=== PATIENT | female | born 1935 | race Caucasian/White ===

== ENCOUNTER → 2018-05-22 09:33 | Outpatient (CLI) | payer MEDICARE, SELFPAY | PROVIDERS: PCP Family Medicine; Visit Provider Family Medicine | DX: M85.851 Other specified disorders of bone density and structure, right thigh (principal); Z78.0 Asymptomatic menopausal state; E07.9 Disorder of thyroid, unspecified; Z90.722 Acquired absence of ovaries, bilateral; Z87.891 Personal history of nicotine dependence | CPT/HCPCS: 77080 ==

== ENCOUNTER → 2020-09-17 10:19 | Outpatient (CLI) | payer MEDICARE, SELFPAY ==
--- NOTE | 2020-09-17 | DI.ECHO.S_ITS ---
[place] [facility] +---------+ : : [address] : : : : [id number] : : : : Phone: [phone]+ Echocardiogram Report + + :Name: BALTAZAR GILL Study Date: 09/17/2020 Height: 66 in : :[facility] ReadingLocation: Weight: 189 lb : : Gender: Female BSA: 2.0 m2 : :: 1935 Age: 85 yrs BP: 185/98 mmHg: :Reason For Study: Edema : :Ordering Physician: ANDRÉS, : :DUSTIN Ford Performed By: Jeff Goode : :Referring: DUSTIN BOWEN : + + Interpretation Summary The ejection fraction is estimated to be 55-60%. The aortic valve is mildly calcified. The aortic valve mean gradient is 11 mmHg. There is mild mitral regurgitation. Procedure: A two-dimensional transthoracic echocardiogram with color flow and Doppler was performed. The study quality was technically adequate. There is no prior echocardiogram noted for this patient. Left Ventricle: Left ventricular wall thickness is borderline increased. Left ventricular systolic function is normal. The ejection fraction is estimated to be 55-60%. There are no focal wall motion abnormalities. Diastolic function could not be accurately assessed due to unobtainable data. Right Ventricle: The right ventricle is normal in size and function. Atria: Both atria are normal in size. There is no Doppler evidence for an interatrial shunt. Mitral Valve: There is mild mitral annular calcification. There is mild mitral regurgitation. Aortic Valve: The aortic valve is mildly calcified. There is mild aortic stenosis. The aortic valve mean gradient is 11 mmHg. There is trace aortic regurgitation. Tricuspid Valve: The tricuspid valve is normal in structure and function. There is a trace or physiologic amount of tricuspid regurgitation. Pulmonary artery pressures cannot be estimated because of the lack of a measurable TR jet velocity but the IVC suggests a CVP of around 3 mmHg. Pulmonic Valve: The pulmonic valve is not well seen, but is grossly normal. There is a trace or physiologic amount of pulmonic regurgitation. Great Vessels: The aortic root is normal size. The dimensions of the ascending aorta are normal. The IVC is of normal diameter and collapses greater than 50% with a sniff. This suggests a low right atrial pressure of 3 mm Hg. Pericardium/ Pleura There is no pericardial effusion. There is no pleural effusion. MMode/2D Measurements & Calculations LVIDd: 4.2 cm LVOT diam: 1.9 cm LVIDs: 2.8 cm Ao root diam: 3.1 cm FS: 33.0 % asc Aorta Diam: 3.4 cm IVSd: 1.1 cm LVPWd: 0.95 cm LV melendez. diameter/BSA (cm/m^2): 2.1 LV sys. diameter/BSA (cm/m^2): 1.4 LA A2 area: 12.9 cm2 RA long axis: 4.5 cm LA A4 area: 14.1 cm2 RA area: 12.8 cm2 LA length (vol): 4.4 cm RA vol: 31.1 ml LA vol: 35.4 ml RA : 15.9 ml/m2 LA vol index: 18.1 ml/m2 IVC diam: 1.4 cm RVD1 (basal): 2.9 cm TAPSE: 1.8 cm Doppler Measurements & Calculations Ao V2 max: 217.0 cm/sec LVOT Max Maciel: 115.9 cm/sec Ao V2 mean: 153.4 cm/sec LV V1 max P.4 mmHg Ao max P.8 mmHg LV V1 VTI: 24.7 cm Ao mean P.7 mmHg KITTY(I,D): 1.6 cm2 Ao V2 VTI: 43.9 cm KITTY(V,D): 1.5 cm2 sev ratio: 0.56 KITTY indexed to BSA (cm^2/m^2): 0.80 MV E max maciel: 89.2 cm/sec PA V2 max: 114.3 cm/sec MV A max maciel: 126.8 cm/sec PA V2 mean: 87.1 cm/sec MV E/A: 0.70 PA mean P.3 mmHg Med Peak E' Maciel: 5.0 cm/sec PA pr(Accel): 48.9 mmHg E/E' med: 17.7 Lat Peak E' Maciel: 7.6 cm/sec E/E' lat: 11.8 E/e' average: 14.7 MV dec time: 0.24 sec SV(LVOT): 68.9 ml Reading Physician:04:10 PM
== END ==
PROVIDERS: PCP Family Medicine; Referring Provider Family Medicine; Visit Provider Family Medicine
DX: I08.0 Rheumatic disorders of both mitral and aortic valves (principal); R60.9 Edema, unspecified
CPT/HCPCS: 93306

== ENCOUNTER 2020-10-22 12:33 | Emergency (ER) | payer MEDICARE, SELFPAY ==
[2020-10-22] VITALS (11 sets, daily range): BP systolic 151–183; BP diastolic 72–77; PULSE 81–99; RESP 15; TEMP 37.1; O2SAT 95–98; BMI 30.4
[2020-10-22 12:57] LABS: Add Manual Diff / Slide Review NO; Basophils Absolute Auto 100 /uL (0-100); Basophils Percent Auto 0.7 % (0-2); Eosinophils Absolute Auto 0 /uL (0-450); Eosinophils Percent Auto 0.1 % (2-4); Hematocrit 39.7 % (36-46); Hemoglobin 13.5 g/dL (12.0-16.0); Lymphocytes Absolute Auto 2300 /uL (1100-4500); Lymphocytes Percent Auto 22.2 % (25-40); Mean Corpuscular Hemoglobin 30.5 PG (26-34); Mean Corpuscular Volume 89.7 fL (80-100); Monocytes Absolute Auto 400 /uL (0-900); Monocytes Percent Auto 4.1 % (3-14); Neutrophils Absolute Auto 7600 /uL (1500-7000); Neutrophils Percent Auto 72.9 % (50-75); Platelet Count 268 X10^3/uL (150-400); Red Blood Cell Count 4.42 X10^6/uL (4.0-5.2); Red Cell Distribution Width 12.5 % (11.6-14.8); White Blood Cell Count 10.5 X10^3/uL (4.5-11.0)
[2020-10-22 13:04] LABS: Alanine Aminotransferase 24 IU/L (<35); Albumin 4.5 g/dL (3.5-5.0); Albumin Globulin Ratio 1.3 (1.0-2.8); Alkaline Phosphatase 86 U/L (38-126); Aspartate Aminotransferase 28 IU/L (14-36); BUN Creatinine Ratio 20.5 (6-22); Bilirubin Total 0.7 mg/dL (0.2-1.3); Blood Urea Nitrogen 24 mg/dL (7-17); Calcium 10.4 mg/dL (8.4-10.2); Carbon Dioxide 27 mmol/L (22-32); Chloride 102 mmol/L (98-107); Ethanol (ETOH) < 10 mg/dL; Globulin 3.5 g/dL (1.7-4.1); Glucose 170 mg/dL (80-110); HEMOLYSIS < 15 (0-50); Potassium 3.3 mmol/L (3.4-5.1); Sodium 139 mmol/L (137-145)
--- NOTE | 2020-10-22 13:16 | ED_ITS ---
HPI - General Adult General Chief complaint: Urogenital-Female Stated complaint: terrible pain in back spreading to abdomen Time Seen by Provider: 10/22/20 12:52 Source: patient Mode of arrival: Ambulatory Limitations: no limitations History of Present Illness HPI narrative: 85-year-old female who is here for evaluation of approximately 24 hours of right-sided flank/abdominal/back discomfort. She also states she has been having urinary frequency. No dysuria. No change in bowel habits. Did have some nausea this morning but that was just 1 time that has since improved. No skin rashes over the area. Has not tried anything for the symptoms prior to arrival. She does have an extensive bowel history. Has had a colectomy. Has had a appendectomy, hysterectomy. She is afebrile. No chest pain. No shortne ss of breath. No fevers. Related Data Home Medications Medication Instructions Recorded Confirmed levothyroxine 100 mcg capsule 100 mcg PO DAILY 10/24/19 10/24/19 metformin 500 mg tablet 500 mg PO DAILY 10/24/19 10/24/19 simvastatin 10 mg tablet 20 mg PO DAILY tab 10/24/19 10/24/19 triamterene 75 1 tab PO DAILY 10/24/19 10/24/19 mg-hydrochlorothiazide 50 mg tablet Previous Rx's Medication Instructions Recorded cephalexin 500 mg capsule 500 mg PO BID 3 Days #6 cap 10/22/20 hydrocodone 5 mg-acetaminophen 325 1 tab PO Q8H PRN #3 tab 10/22/20 mg tablet Allergies Allergy/AdvReac Type Severity Reaction Status Date / Time No Known Drug Allergies Allergy Verified 10/22/20 12:44 Review of Systems Constitutional Constitutional: Denies fever(s) Eyes Eyes: Reports system reviewed and no additional complaints, except as documented ENT Ears, Nose, Mouth, and Throat: Denies sore throat Cardiovascular Cardiovascular: Reports system reviewed and no additional complaints, except as documented Respiratory Respiratory: Reports system reviewed and no additional complaints, except as documented Gastrointestinal Gastrointestinal: Reports as per HPI Genitourinary Genitourinary: Reports as per HPI Musculoskeletal Musculoskeletal: Reports system reviewed and no additional complaints, except as documented Integumentary/Breasts Skin/Breast: Denies rash Neurologic Neurologic: Reports system reviewed and no additional complaints, except as documented Endocrine Endocrine: Reports system reviewed and no additional complaints, except as documented Hematologic/Lymphatic On Anticoagulants: No Allergic/Immunologic Allergic/Immunologic: Reports system reviewed and no additional complaints, except as documented Patient History Medical History Hypertension Social History Smoking Status: Unknown if ever smoked Smoking Status: Unknown if ever smoked alcohol intake frequency: holidays/special occasions only Substance Use Type: does not use Exam Initial Vital Signs Initial Vital Signs: Vital Signs Temperature 98.8 F 10/22/20 12:40 Pulse Rate 95 H 10/22/20 12:40 Respiratory Rate 15 10/22/20 12:40 Blood Pressure 169/77 H 10/22/20 12:40 Pulse Oximetry 96 10/22/20 12:40 Const General: cooperative HENMT Head: normal to inspection and normocephalic Eyes General: appearance normal, both eyes and all related structures Resp Effort & Inspection: normal respiratory effort Auscultation: clear to auscultation bilaterally Cardio Rate: regular rate Rhythm: regular rhythm GI Inspection: normal to inspection Palpation: soft and tender (Right lower quadrant/right flank) Back/Spine/Pelvis Back: CVA tenderness right Skin General: no rashes or lesions noted Neuro General: patient alert, patient awake, patient oriented x3 and moves all extremities Extrem General: normal to inspection Psych Appearance: grossly normal and well kempt Course Orders Ordered: ED Orders 10/22/20 12:46 Complete Blood Count AUTO DIFF Stat Comprehensive Metabolic Panel Stat Ethanol (ETOH) Stat 10/22/20 13:15 Urinalysis and Microscopic Stat Urine Culture Stat 10/22/20 13:16 CT abdomen pelvis w con Stat Discontinued Medications Hydrocodone Bitart/Acetaminophen (Hydrocodone/Acet 5/325 Tablet) 1 tab PO NOW ONE Stop: 10/22/20 14:01 Last Admin: 10/22/20 14:08 Dose: 1 tab Documented by: THALIA Sodium Chloride (Normal Saline 0.9%) 1,000 mls @ 1,000 mls/hr IV BOLUS ONE Stop: 10/22/20 14:15 Last Infusion: 10/22/20 15:09 Dose: 0 mls/hr Documented by: Admin: 10/22/20 13:22 Dose: 1,000 mls/hr Documented by: THALIA Vital Signs Vital signs: Vital Signs - 8 hr 10/22/20 12:40 10/22/20 12:41 10/22/20 13:00 Temperature 98.8 F Pulse Rate 99 H 98 H 92 H Respiratory Rate 15 Blood Pressure 169/77 H 169/77 H Pulse Oximetry 97 96 95 10/22/20 13:01 10/22/20 13:30 10/22/20 14:00 Temperature Pulse Rate 92 H 87 82 Respiratory Rate Blood Pressure 183/74 H Pulse Oximetry 97 98 97 10/22/20 14:11 10/22/20 14:30 10/22/20 14:31 Temperature Pulse Rate 84 82 81 Respiratory Rate Blood Pressure 175/76 H 179/75 H Pulse Oximetry 97 97 97 10/22/20 15:00 10/22/20 15:01 Temperature Pulse Rate 84 87 Respiratory Rate Blood Pressure 151/72 H Pulse Oximetry 97 97 Medical Decision Making Lab Data Lab results reviewed: Yes I reviewed the patient's lab results. Result diagrams: 10/22/20 12:46 10/22/20 12:46 Labs: Lab Results 10/22/20 10/22/20 10/22/20 Range/Units 12:46 12:46 12:46 WBC 10.5 (4.5-11.0) X10^3/uL RBC 4.42 (4.0-5.2) X10^6/uL Hgb 13.5 (12.0-16.0) g/dL Hct 39.7 (36-46) % MCV 89.7 (80-100) fL MCH 30.5 (26-34) PG MCHC 34.0 (30-36) % RDW 12.5 (11.6-14.8) % Plt Count 268 (150-400) X10^3/uL Neut % (Auto) 72.9 (50-75) % Lymph % (Auto) 22.2 L (25-40) % [place] % (Auto) 4.1 (3-14) % Eos % (Auto) 0.1 L (2-4) % Baso % (Auto) 0.7 (0-2) % Neut # (Auto) 7600 H (5258-0707) /uL Lymph # (Auto) 2300 (0648-0149) /uL [place] # (Auto) 400 (0-900) /uL Eos # (Auto) 0 (0-450) /uL Baso # (Auto) 100 (0-100) /uL Sodium 139 (137-145) mmol/L Potassium 3.3 L (3.4-5.1) mmol/L Chloride 102 (98-107) mmol/L Carbon Dioxide 27 (22-32) mmol/L BUN 24 H (7-17) mg/dL Creatinine 1.17 H (0.52-1.04) mg/dL Estimated GFR 44.0 L (>60) mL/min BUN/Creatinine Ratio 20.5 (6-22) Glucose 170 H (80-110) mg/dL Calcium 10.4 H (8.4-10.2) mg/dL Total Bilirubin 0.7 (0.2-1.3) mg/dL AST 28 (14-36) IU/L ALT 24 (<35) IU/L Alkaline Phosphatase 86 (38-126) U/L Total Protein 8.0 (6.3-8.2) g/dL Albumin 4.5 (3.5-5.0) g/dL Globulin 3.5 (1.7-4.1) g/dL Albumin/Globulin Ratio 1.3 (1.0-2.8) Urine Color Urine Appearance Urine pH (4.5-8.0) Ur Specific [place] (1.000-1.035) Urine Protein (Negative) Urine Glucose (UA) (Negative) g/dL Urine Ketones (NEGATIVE) Urine Occult Blood (Negative) Urine Nitrate (Negative) Urine Bilirubin (NEGATIVE) Urine Urobilinogen (0.2) E.U./dL Ur Leukocyte Esterase (NEGATIVE) Urine RBC (0-5/HPF) Urine WBC (0-5/HPF) Ur Squamous Epith Cells (0-5/HPF) Urine Bacteria (None) Ur Culture Indicated? Ethyl Alcohol < 10 ( - 10) mg/dL 10/22/20 Range/Units 13:15 WBC (4.5-11.0) X10^3/uL RBC (4.0-5.2) X10^6/uL Hgb (12.0-16.0) g/dL Hct (36-46) % MCV (80-100) fL MCH (26-34) PG MCHC (30-36) % RDW (11.6-14.8) % Plt Count (150-400) X10^3/uL Neut % (Auto) (50-75) % Lymph % (Auto) (25-40) % [place] % (Auto) (3-14) % Eos % (Auto) (2-4) % Baso % (Auto) (0-2) % Neut # (Auto) (5377-6258) /uL Lymph # (Auto) (6406-5504) /uL [place] # (Auto) (0-900) /uL Eos # (Auto) (0-450) /uL Baso # (Auto) (0-100) /uL Sodium (137-145) mmol/L Potassium (3.4-5.1) mmol/L Chloride (98-107) mmol/L Carbon Dioxide (22-32) mmol/L BUN (7-17) mg/dL Creatinine (0.52-1.04) mg/dL Estimated GFR (>60) mL/min BUN/Creatinine Ratio (6-22) Glucose (80-110) mg/dL Calcium (8.4-10.2) mg/dL Total Bilirubin (0.2-1.3) mg/dL AST (14-36) IU/L ALT (<35) IU/L Alkaline Phosphatase (38-126) U/L Total Protein (6.3-8.2) g/dL Albumin (3.5-5.0) g/dL Globulin (1.7-4.1) g/dL Albumin/Globulin Ratio (1.0-2.8) Urine Color Yellow Urine Appearance Slightly cloudy Urine pH 5.5 (4.5-8.0) Ur Specific [place] 1.015 (1.000-1.035) Urine Protein Trace H (Negative) Urine Glucose (UA) Negative (Negative) g/dL Urine Ketones Negative (NEGATIVE) Urine Occult Blood Negative (Negative) Urine Nitrate Negative (Negative) Urine Bilirubin Negative (NEGATIVE) Urine Urobilinogen 0.2 (0.2) E.U./dL Ur Leukocyte Esterase 1+ H (NEGATIVE) Urine RBC 0-1/hpf (0-5/HPF) Urine WBC 10-30/hpf H (0-5/HPF) Ur Squamous Epith Cells 0-1 /hpf (0-5/HPF) Urine Bacteria Few (2-10) H (None) Ur Culture Indicated? Specimen cultured Ethyl Alcohol ( - 10) mg/dL Imaging Data CT scan - abdomen/pelvis: Radiologist's Impression: [address] [id number] Scan ReportSigned Patient: Citlaly Godinez JMR#: [id number]: 6Acct:[id number]/Sex: 85 / FDate of Service: 10/22/20Loc: EDAccession Number: [id number] Procedure: CT abdomen pelvis w con Ordering Provider: Kush Patricia D.O. PROCEDURE: CT ABDOMEN PELVIS W CON INDICATIONS: 85-year-old female with abdominal pain and history of colon cancer, partial colectomy, appendectomy TECHNIQUE: After the administration of intravenous contrast, axial sections acquired from the lung bases to the pubic symphysis. Coronal and sagittal reformats were performed. For radiation dose reduction, the following was used: automated exposure control, adjustment of mA and/or kV according to patient size. COMPARISON: None. FINDINGS: Lower thorax: The lung bases are clear. Heart size normal. Small hiatal hernia noted. Liver: The liver is diffusely decreased in attenuation without focal mass lesion. Biliary system: Cholelithiasis noted without gallbladder wall thickening or pericholecystic fluid. No intra or extrahepatic bile duct dilatation. Pancreas: Unremarkable without mass or inflammation evident. Spleen: Normal in size and density. Adrenals: Normal morphology and density. Reproductive system: Unremarkable as visualized. Urinary system: Normal renal size and attenuation. Subcentimeter left renal hypodensities likely reflects cyst. No renal calculi, hydronephrosis, or solid mass present. Urinary bladder unremarkable. Gastrointestinal system: There is a loop of proximal small bowel which shows focal wall thickening measuring up to 8 mm.: Unremarkable6 Surgical clips noted adjacent to left colon. No obstruction. Appendix: Appendectomy. Peritoneal spaces: No mesenteric or retroperitoneal adenopathy. No free air. No free fluid. Vasculature: Aortic atherosclerotic vascular calcification noted without evidence of aneurysm. Musculoskeletal: Normal bone mineralization. Degenerative disc disease and arthropathy noted in lower lumbar spine. No acute fractures. Abdominal wall intact without evidence of ventral or inguinal hernias. IMPRESSION: 1. Single loop of proximal small bowel irregular wall thickening without obstruction. Differential considerations would include focal enteritis, and given patient history, focal small-bowel neoplasm would also be a consideration. 2. Cholelithiasis without CT evidence of acute cholecystitis. Approved by: Travis Starkey M.D. on 10/22/2020 at 13:06 MDM Narrative Medical decision making narrative: Patient's urinalysis today does have white blood cells and bacteria. Urine culture was pending at the time of discharge. Given the fact that she is having some flank discomfort and urinary frequency we will treat this as a urinary tract infection. She was informed that there was a urine culture pending we will contact her if we need to change any antibiotics. CT scan of her abdomen did not show any signs of acute pathology. Did not show any signs of inflammation around the right kidney is a do have low suspicion for pyelonephritis based on her exam. Her right-sided flank pain could potentially be because of for urinary tract infection or could also be muscular. I do not feel that we need to admit the patient for further evaluation. No indication for surgical consultation. She was given strict return precautions and follow- up instructions. She expressed understanding and agreement. Discharge Plan Departure Patient Disposition: Home Clinical Impression: Urinary tract infection, Abdominal pain Instructions: DI for Urinary Tract Infection (UTI) Activity Restrictions/Additional Instructions: We will start you on antibiotics. Please start taking them as directed. A urine culture was pending at the time of your discharge. We will contact you need to change any antibiotics. Return to the emergency department for any new or worsening symptoms Prescriptions: New cephalexin 500 mg capsule 500 mg PO BID 3 Days Qty: 6 RF: 0 hydrocodone-acetaminophen 5-325 mg tablet 1 tab PO Q8H PRN (Reason: pain) Qty: 3 RF: 0 No Action simvastatin 10 mg tablet 20 mg PO DAILY RF: 0 triamterene-hydrochlorothiazid 75-50 mg tablet 1 tab PO DAILY RF: 0 metformin 500 mg tablet 500 mg PO DAILY RF: 0 levothyroxine 100 mcg capsule 100 mcg PO DAILY RF: 0 Referrals: Yvan Crawford MD [Primary Care Provider] -
[2020-10-22] MEDS: SODIUM CHLORIDE 0.9% 1,000 ML 1000 ML IV (13:22)
[2020-10-22 13:33] LABS: Bilirubin Urine UA NEGATIVE (NEGATIVE); Color Urine UA YELLOW; Glucose Urine UA NEGATIVE (Negative); Ketones Urine UA NEGATIVE (NEGATIVE); Leukocyte Esterase Urine UA 1+ (NEGATIVE); Nitrite Urine UA NEGATIVE (Negative); Occult Blood Urine UA NEGATIVE (Negative); Protein Urine UA TRACE (Negative); Specific Gravity Urine UA 1.015 (1.000-1.035); Urobilinogen Urine UA 0.2 E.U./dL (0.2)
[2020-10-22 13:36] LABS: Appearance Urine UA Slightly Cloudy; pH Urine UA 5.5 (4.5-8.0)
[2020-10-22 13:51] LABS: Bacteria Urine Few (2-10); Culture Indicated Urine Specimen Cultured; RBC Urine 0-1/HPF (0-5/HPF); Squamous Epithelial Cell Urine 0-1 /HPF (0-5/HPF); WBC Urine 10-30/HPF (0-5/HPF)
[2020-10-22] MEDS: HYDROCODONE/ACET 5/325 TABLET 1 TAB PO (14:08)
== END 2020-10-22 15:17 | disposition home or self-care (01) ==
PROVIDERS: Emergency Provider Emergency Medicine; PCP Family Medicine
DX: N39.0 Urinary tract infection, site not specified (principal); R10.9 Unspecified abdominal pain
CPT/HCPCS: 36415; 74177; 80053; 80320; 81001; 85025; 87086; 96360; 96361; 99284; Q9967

== ENCOUNTER 2020-10-24 09:20 | Emergency (ER) | payer MEDICARE, SELFPAY ==
[2020-10-24 09:53] VITALS: BP 187/88; PULSE 84; RESP 18; TEMP 37.2; O2SAT 97
[2020-10-24 10:01] LABS: Bacteria Urine None Seen; RBC Urine None Seen (0-5/HPF)
[2020-10-24 10:04] LABS: Appearance Urine UA CLEAR; Bilirubin Urine UA NEGATIVE (NEGATIVE); Color Urine UA YELLOW; Glucose Urine UA NEGATIVE (Negative); Ketones Urine UA NEGATIVE (NEGATIVE); Leukocyte Esterase Urine UA 1+ (NEGATIVE); Nitrite Urine UA NEGATIVE (Negative); Occult Blood Urine UA TRACE-INTACT (Negative); Protein Urine UA NEGATIVE (Negative); Specific Gravity Urine UA 1.015 (1.000-1.035); Urobilinogen Urine UA 0.2 E.U./dL (0.2)
[2020-10-24 10:11] LABS: pH Urine UA 5.5 (4.5-8.0)
[2020-10-24 10:12] LABS: Culture Indicated Urine Cult Not Indicated; Squamous Epithelial Cell Urine 0-1 /HPF (0-5/HPF); WBC Urine 0-1/HPF (0-5/HPF)
--- NOTE | 2020-10-24 10:51 | ED_ITS ---
HPI - Abdominal Pain General Chief Complaint: Abdominal Pain Stated Complaint: Rt side ABD/Low back pain, not getting better Time Seen by Provider: 10/24/20 09:59 Source: patient Mode of arrival: Family Vehicle Limitations: no limitations History of Present Illness HPI narrative: 85-year-old woman with a history of diabetes, hypertension, hyperlipidemia, hypothyroidism who presents for the 2nd time with right-sided abdominal pain. She was seen on the with similar complaints including urinary frequency. She was treated presumptively for a urinary tract infection based on microscopic urine results with cephalexin. Labs relatively reassuring and a CT scan did not show significant pathology. She comes in today saying she has been taking the antibiotics and she is feeling worse. Continues to have waves of severe right-sided pain from the right flank radiating to the right upper quadrant down the right side and into the right groin. She thinks that she may be slightly constipated but then she has not been eating much over the past couple of days because of the pain in general malaise. She describes no fevers and no vomiting. She has had no cough, chest pain, palpitations, dyspnea. Related Data Home Medications Medication Instructions Recorded Confirmed levothyroxine 100 mcg capsule 100 mcg PO DAILY 10/24/19 10/24/19 metformin 500 mg tablet 500 mg PO DAILY 10/24/19 10/24/19 simvastatin 10 mg tablet 20 mg PO DAILY tab 10/24/19 10/24/19 triamterene 75 1 tab PO DAILY 10/24/19 10/24/19 mg-hydrochlorothiazide 50 mg tablet Previous Rx's Medication Instructions Recorded cephalexin 500 mg capsule 500 mg PO BID 3 Days #6 cap 10/22/20 hydrocodone 5 mg-acetaminophen 325 1 tab PO Q8H PRN #3 tab 10/22/20 mg tablet Allergies Allergy/AdvReac Type Severity Reaction Status Date / Time No Known Drug Allergies Allergy Verified 10/24/20 09:51 Review of Systems Review of Systems Narrative: Remainder of complete review of systems is otherwise unremarkable except for that included in the HPI. Patient History Medical History (Updated 10/24/20 @ 12:49 by Grace Bhat MD) Diabetes Hyperlipidemia Hypertension Social History Smoking Status: Unknown if ever smoked Smoking Status: Unknown if ever smoked alcohol intake frequency: holidays/special occasions only Substance Use Type: does not use Exam Narrative Exam Narrative: General: Healthy appearing, in no acute distress. Able to give a complete and coherent history. Well-nourished well-developed HEENT: Moist mucous membranes, normal sclera with reactive pupils, Respiratory: Lungs are clear to auscultation, no wheezing no rales no rhonchi. Full and symmetrical air movement Cardiac: Regular rate and rhythm no murmurs no bruits Abdomen: Soft, right flank pain with significant right upper quadrant pain severe right lower quadrant pain and moderate pain through the remainder of the abdomen without specific rebound or guarding Skin: Warm and dry, no rashes Neurologic: Grossly neurologically intact with no obvious asymmetries or abnormalities Extremities: No trauma, well perfused Psych: Cooperative, appropriate insight and affect Initial Vital Signs Initial Vital Signs: Vital Signs Temperature 98.9 F 10/24/20 09:53 Pulse Rate 84 10/24/20 09:53 Respiratory Rate 18 10/24/20 09:53 Blood Pressure 187/88 H 10/24/20 09:53 Pulse Oximetry 97 10/24/20 09:53 Course Orders Ordered: ED Orders 10/24/20 09:55 Urinalysis and Microscopic Stat 10/24/20 10:56 CT abdomen pelvis w con Stat 10/24/20 11:15 Complete Blood Count AUTO DIFF Stat Comprehensive Metabolic Panel Stat Lipase Stat Magnesium Stat Hydromorphone HCl (Hydromorphone 0.5 Mg Inj) 0.5 mg IV Q15MIN PRN PRN Reason: Pain, Last Admin: 10/24/20 11:19 Dose: 0.5 mg Documented by: ATAYLOR Discontinued Medications Sodium Chloride (Normal Saline 0.9%) 1,000 mls @ 1,000 mls/hr IV BOLUS ONE Stop: 10/24/20 11:51 Last Admin: 10/24/20 11:18 Dose: 1,000 mls/hr Documented by: ATAYLOR Magnesium Citrate (Magnesium Citrate 300 Ml Solution) 300 ml PO NOW ONE Stop: 10/24/20 12:47 Last Admin: 10/24/20 12:53 Dose: 300 ml Documented by: Ondansetron HCl (Ondansetron 4 Mg/2 Ml Inj) 4 mg IV NOW ONE Stop: 10/24/20 10:53 Last Admin: 10/24/20 11:18 Dose: 4 mg Documented by: VIKI Vital Signs Vital signs: Vital Signs - 8 hr 10/24/20 09:53 10/24/20 11:30 Temperature 98.9 F Pulse Rate 84 73 Respiratory Rate 18 Blood Pressure 187/88 H 155/77 H Pulse Oximetry 97 96 MDM - Abdominal Pain Medical Records Medical records narrative: 85-year-old woman presents with recurrent worsening abdominal pain. Had initially been treated for urinary tract infection culture is negative will have her stop antibiotics. Labs are reassuring at this point with no evidence of infection. Repeat CT scan does not show significant pathology but does suggest moderate stool loading. Will ask her to go home and try some magnesium citrate to see if that resolves the pain. At this point there is no evidence of appendicitis(and she is status post appendectomy) cholecystitis, ischemic bowel, bowel obstruction or bowel wall abnormalities. N o pyelonephritis or kidney abnormalities. Findings reviewed with patient. Questions are answered. She is safe for home discharge Lab Data Lab results narrative: Urine culture from October 22 does not show a urinary tract infection Result diagrams: 10/24/20 11:15 10/24/20 11:15 Labs: Lab Results 10/24/20 10/24/20 10/24/20 Range/Units 09:55 11:15 11:15 WBC 8.9 (4.5-11.0) X10^3/uL RBC 4.41 (4.0-5.2) X10^6/uL Hgb 13.2 (12.0-16.0) g/dL Hct 39.6 (36-46) % MCV 89.8 (80-100) fL MCH 30.0 (26-34) PG MCHC 33.4 (30-36) % RDW 12.4 (11.6-14.8) % Plt Count 229 (150-400) X10^3/uL Neut % (Auto) 68.5 (50-75) % Lymph % (Auto) 22.4 L (25-40) % [place] % (Auto) 8.1 (3-14) % Eos % (Auto) 0.3 L (2-4) % Baso % (Auto) 0.7 (0-2) % Neut # (Auto) 6100 (3434-9342) /uL Lymph # (Auto) 2000 (0844-2873) /uL [place] # (Auto) 700 (0-900) /uL Eos # (Auto) 0 (0-450) /uL Baso # (Auto) 100 (0-100) /uL Sodium 138 (137-145) mmol/L Potassium 3.2 L (3.4-5.1) mmol/L Chloride 101 (98-107) mmol/L Carbon Dioxide 30 (22-32) mmol/L BUN 23 H (7-17) mg/dL Creatinine 1.11 H (0.52-1.04) mg/dL Estimated GFR 46.7 L (>60) mL/min BUN/Creatinine Ratio 20.7 (6-22) Glucose 144 H (80-110) mg/dL Calcium 9.7 (8.4-10.2) mg/dL Magnesium 1.7 (1.6-2.3) mg/dL Total Bilirubin 0.8 (0.2-1.3) mg/dL AST 32 (14-36) IU/L ALT 23 (<35) IU/L Alkaline Phosphatase 76 (38-126) U/L Total Protein 7.6 (6.3-8.2) g/dL Albumin 4.3 (3.5-5.0) g/dL Globulin 3.3 (1.7-4.1) g/dL Albumin/Globulin Ratio 1.3 (1.0-2.8) Lipase 117 (23-300) U/L Urine Color Yellow Urine Appearance Clear Urine pH 5.5 (4.5-8.0) Ur Specific [place] 1.015 (1.000-1.035) Urine Protein Negative (Negative) Urine Glucose (UA) Negative (Negative) g/dL Urine Ketones Negative (NEGATIVE) Urine Occult Blood Trace-intact (Negative) Urine Nitrate Negative (Negative) Urine Bilirubin Negative (NEGATIVE) Urine Urobilinogen 0.2 (0.2) E.U./dL Ur Leukocyte Esterase 1+ H (NEGATIVE) Urine RBC None seen (0-5/HPF) Urine WBC 0-1/hpf (0-5/HPF) Ur Squamous Epith Cells 0-1 /hpf (0-5/HPF) Urine Bacteria None seen (None) Ur Culture Indicated? Cult not indicated Discharge Plan Departure Patient Disposition: Home Clinical Impression: Abdominal pain Qualifiers: Abdominal location: right lower quadrant Qualified Code(s): R10.31 - Right lower quadrant pain Constipation Qualifiers: Constipation type: unspecified constipation type Qualified Code(s): K59.00 - Constipation, unspecified Instructions: DI for Constipation Activity Restrictions/Additional Instructions: Thank you for coming in today You do not have a bladder infection and you can stop her antibiotics. Repeat blood work was very reassuring Your CT scan showed the minor abnormality seen in the bowel wall a couple of days ago has completely resolved. There were no significant findings to explain your pain aside from quite a bit of stool throughout the entire colon I am sending you home with a bottle of magnesium citrate (similar to what you use prior to a colonoscopy to clean yourself out) to see if cleaning out your entire colon completely resolved her pain. If you have worsening symptoms or new findings, please return to the ER I wish you the best Prescriptions: No Action simvastatin 10 mg tablet 20 mg PO DAILY RF: 0 triamterene-hydrochlorothiazid 75-50 mg tablet 1 tab PO DAILY RF: 0 metformin 500 mg tablet 500 mg PO DAILY RF: 0 levothyroxine 100 mcg capsule 100 mcg PO DAILY RF: 0 cephalexin 500 mg capsule 500 mg PO BID 3 Days Qty: 6 RF: 0 hydrocodone-acetaminophen 5-325 mg tablet 1 tab PO Q8H PRN (Reason: pain) Qty: 3 RF: 0 Referrals: Yvan Crawford MD [Primary Care Provider] -
--- NOTE | 2020-10-24 10:56 | DI.CT.S_ITS ---
PROCEDURE: CT ABDOMEN PELVIS W CON INDICATIONS: Worsening abdominal pain TECHNIQUE: After the administration of oral and IV contrast, axial sections were acquired from the lung bases to the pubic symphysis. Coronal and sagittal reformats were performed. For radiation dose reduction, the following was used: automated exposure control, adjustment of mA and/or kV according to patient size. COMPARISON: [facility], CT, CT ABDOMEN PELVIS W CON, 10/22/2020, 13:19. FINDINGS: Lower thorax: The lung bases are clear. Heart size normal. No hiatal hernia. Liver: The liver is diffusely decreased in attenuation without focal mass lesion. Biliary system: Cholelithiasis noted without gallbladder wall thickening or pericholecystic fluid. No intra or extrahepatic bile duct dilatation. Pancreas: Unremarkable without mass or inflammation evident. Spleen: Normal in size and density. Adrenals: Normal morphology and density. Reproductive system: Unremarkable as visualized. Urinary system: Normal renal size and attenuation. Subcentimeter hypodensity in the left kidney remains unchanged. No renal calculi, hydronephrosis, or solid mass present. Urinary bladder unremarkable. Gastrointestinal system: Previously described small bowel wall thickening has resolved in the interval. Moderate fecal debris noted throughout the colon. Surgical clips noted adjacent to the left colon. No evidence of obstruction. Appendix: Appendectomy Peritoneal spaces: No mesenteric or retroperitoneal adenopathy. No free air. No free fluid. Vasculature: Aortic atherosclerotic vascular calcification noted without evidence of aneurysm. Musculoskeletal: Normal bone mineralization. Degenerative disc disease and arthropathy noted in lower lumbar spine. No acute fractures. Abdominal wall intact without evidence of ventral or inguinal hernias. IMPRESSION: 1. No acute CT abdomen or pelvic findings. 2. Previously described small bowel wall thickening has resolved in the interval. 3. Moderate fecal debris in the colon. No bowel obstruction. 4. Incidental cholelithiasis, left pericolonic surgical clips, aortic atherosclerosis Approved by: Travis Starkey M.D. on 10/24/2020 at 11:18
[2020-10-24] MEDS: ONDANSETRON 4 MG/2 ML INJ IV (11:18)
[2020-10-24] MEDS: SODIUM CHLORIDE 0.9% 1,000 ML 1000 ML IV (11:18)
[2020-10-24] MEDS: HYDROMORPHONE 0.5 MG INJ IV (11:19)
[2020-10-24 11:25] LABS: Add Manual Diff / Slide Review NO; Basophils Absolute Auto 100 /uL (0-100); Basophils Percent Auto 0.7 % (0-2); Eosinophils Absolute Auto 0 /uL (0-450); Eosinophils Percent Auto 0.3 % (2-4); Hematocrit 39.6 % (36-46); Hemoglobin 13.2 g/dL (12.0-16.0); Lymphocytes Absolute Auto 2000 /uL (1100-4500); Lymphocytes Percent Auto 22.4 % (25-40); Mean Corpuscular HGB Conc 33.4 % (30-36); Mean Corpuscular Volume 89.8 fL (80-100); Monocytes Absolute Auto 700 /uL (0-900); Monocytes Percent Auto 8.1 % (3-14); Neutrophils Absolute Auto 6100 /uL (1500-7000); Neutrophils Percent Auto 68.5 % (50-75); Platelet Count 229 X10^3/uL (150-400); Red Blood Cell Count 4.41 X10^6/uL (4.0-5.2); Red Cell Distribution Width 12.4 % (11.6-14.8); White Blood Cell Count 8.9 X10^3/uL (4.5-11.0)
[2020-10-24 11:30] VITALS: BP 155/77; PULSE 73; O2SAT 96
[2020-10-24 11:41] LABS: Alanine Aminotransferase 23 IU/L (<35); Albumin 4.3 g/dL (3.5-5.0); Albumin Globulin Ratio 1.3 (1.0-2.8); Alkaline Phosphatase 76 U/L (38-126); Aspartate Aminotransferase 32 IU/L (14-36); BUN Creatinine Ratio 20.7 (6-22); Bilirubin Total 0.8 mg/dL (0.2-1.3); Blood Urea Nitrogen 23 mg/dL (7-17); Calcium 9.7 mg/dL (8.4-10.2); Carbon Dioxide 30 mmol/L (22-32); Chloride 101 mmol/L (98-107); Estimated Glomerular Filt Rate 46.7 mL/min (>60); Globulin 3.3 g/dL (1.7-4.1); Glucose 144 mg/dL (80-110); HEMOLYSIS < 15 (0-50); Lipase 117 U/L (23-300); Magnesium 1.7 mg/dL (1.6-2.3); Potassium 3.2 mmol/L (3.4-5.1); Sodium 138 mmol/L (137-145); Total Protein 7.6 g/dL (6.3-8.2)
[2020-10-24 12:00] VITALS: PULSE 74; O2SAT 98
[2020-10-24 12:01] VITALS: BP 163/72; PULSE 74; O2SAT 98
[2020-10-24 12:30] VITALS: BP 160/90; PULSE 71; RESP 16; O2SAT 98
[2020-10-24] MEDS: MAGNESIUM CITRATE 300 ML SOLUTION PO (12:53)
[2020-10-24 12:55] VITALS: PULSE 74; O2SAT 98
== END 2020-10-24 13:04 | disposition home or self-care (01) ==
PROVIDERS: Emergency Provider Emergency Medicine; PCP Family Medicine
DX: R10.31 Right lower quadrant pain (principal); K59.00 Constipation, unspecified
CPT/HCPCS: 36415; 74177; 80053; 81001; 83690; 83735; 85025; 96361; 96374; 96375; 99284; 99285; J1170; J2405; Q9967

== ENCOUNTER → 2020-11-11 09:47 | Outpatient (CLI) | payer MEDICARE, SELFPAY ==
[2020-11-11 11:37] LABS: COVID19 -Nasal RAPID Negative (Negative)
== END ==
PROVIDERS: PCP Family Medicine; Visit Provider Surgery
DX: Z01.812 Encounter for preprocedural laboratory examination (principal); Z20.822 Contact with and (suspected) exposure to COVID-19
CPT/HCPCS: 87635; C9803

== ENCOUNTER 2020-11-12 11:59 | Day surgery (SDC) | payer MEDICARE, SELFPAY ==
[2020-11-12] VITALS (9 sets, daily range): BP systolic 106–152; BP diastolic 58–81; PULSE 64–89; RESP 14–20; TEMP 36.3–37.1; O2SAT 96–98; BMI 29.3
[2020-11-12] MEDS: LACTATED RINGERS 1,000 ML 200 ML IV (12:36)
--- NOTE | 2020-11-12 13:11 | PM.PREOP ---
Pre-operative Note Interval Note History & Physical reviewed/Exam performed by Physician: Yes Changes to H&P: No
[2020-11-12] MEDS: MIDAZOLAM 5 MG/5 ML VIAL IV (13:27)
--- NOTE | 2020-11-12 13:28 | PM.OP.ENDO ---
Operative Date/Time/Diagnoses Date of procedure: 11/12/20 Time of procedure: 13:28 Pre-op diagnosis: history of colon cancer Post-op diagnosis: same Procedure & Clinicians Study performed: colonoscopy Same procedure as scheduled: Yes Indications: abdominal pain history of colon cancer 20 years ago sp resection Surgeon: Jorge Pompa Procedure Notes Procedure in detail: Medications: Conscious sedation using 4mg IV midazolam and 50mcg IV of fentanyl The history and physical was performed/updated and the patient is ASA class is 2. The procedure was discussed in detail with the patient. Potential risks complications including infection, bleeding, missed diagnosis, perforation, need for surgery, and were explained. Their questions were answered and informed consent was obtained. Patient was brought to the procedure room and placed standard monitoring equipment. The patient's vital signs were monitored continuously throughout the entire procedure. Prior to starting time-out was performed. The patient was placed in the left lateral recumbent position. Procedural sedation was administered. Examination began with a thorough inspection of the perianal area there was no evidence of fissures, fistulae, external hemorrhoids or cutaneous malignancy. The colonoscopy scope was then placed into the anal canal and was advanced to the cecum, which was identified by the ileocecal valve, the appendiceal orifice and the confluence of the taenia. The scope was then slowly withdrawn examining colon thoroughly in all directions, irrigating it of any residual stool. FINDINGS 1. No masses or polyps 2. Colonic anastomosis appears to be side to side with no obvious pathology 3. Diverticulosis The patient tolerated the procedure well. They will be discharged once criteria are met. The prep was of good/excellent quality. The withdrawl time was 6 minutes. The sedation time was 20 minutes. Specimen(s): none sent Complications: none Impression: Normal colonoscopy Post-procedure Plan for aftercare: No further colonoscopy is necessary Disposition: same day surgery
[2020-11-12] MEDS: fentaNYL 250 MCG/5 ML INJ IV (13:29)
== END 2020-11-12 14:45 | disposition home or self-care (01) ==
PROVIDERS: PCP Family Medicine; Referring Provider Surgery; Visit Provider Surgery
PROC: 0DJD8ZZ Inspection of Lower Intestinal Tract, Via Natural or Artificial Opening Endoscopic (ICD-10-PCS; CPT 45378; principal; 2020-11-12 13:00)
DX: R10.9 Unspecified abdominal pain (principal); Z85.038 Personal history of other malignant neoplasm of large intestine; K57.30 Diverticulosis of large intestine without perforation or abscess without bleeding
CPT/HCPCS: 45378; 99152; J2250; J3010